=== PATIENT | female | born 1975 | race Caucasian/White ===

== ENCOUNTER 2017-11-21 13:22 | Emergency (ER) | payer BC ==
[~2017-11-21] VITALS: Ht 162.6 cm; Wt 70.0 kg
[2017-11-21 13:28] VITALS: TEMP 36.8; Ht 162.6 cm; Wt 70.0 kg
--- NOTE | 2017-11-21 14:38 | DIAGNOSTIC IMAGING REPORT ---
L KNEE 1 OR 2 VIEWS ROUTINE CLINICAL HISTORY: 42 years-old Female presenting with L knee pain. TECHNIQUE: Frontal and lateral views of the left knee were obtained. COMPARISON: None. FINDINGS: Knee joint congruent. No large knee joint effusion. Stippled sclerosis in the proximal metaphysis of the tibia. No acute fracture or malalignment. No advanced degenerative change. No radiographic soft tissue abnormality. IMPRESSION: 1. No acute osseous injury. 2. Stippled sclerosis in the proximal metaphysis of the tibia. This may represent a chondroid lesion or less likely infarct. Further evaluation with MR could be considered as clinically appropriate. Electronically signed by: Maurice Aguilar M.D. 11/21/2017 2:36 PM Dictated Date/Time: 11/21/2017 2:35 PM
--- NOTE | 2017-11-21 14:51 | EMERGENCY ROOM VISIT NOTE ---
History First contact with patient: 13:30 Chief Complaint: KNEEPAIN Stated Complaint: POTENTIAL DISLOCATED KNEE History of Present Illness The patient is a 42 year old female who presents to the Emergency Room with complaints of left knee pain. The patient reports that she was crouching down and try to twist her body when standing up when she felt a sudden onset of pain over the back of her knee. The patient is concerned that she dislocated the knee. The patient reports that she did injure the same knee approximately 2 weeks ago with a similar mechanism of injury. She reports that the pain lasted approximately 2 days, and had no persistent clicking, locking, instability or discomfort. The patient denies any prior left knee injuries or surgeries. She currently denies any pain extending into the leg or thigh. She denies paresthesias or numbness of the left lower extremity, and rates her discomfort an 8 out of 10. Review of Systems 10 system review was performed and was negative except for pertinent positives and negatives as indicated in history of present illness Past Medical/Surgical History Medical Problems: (1) No significant past medical history Surgical Problems: (1) History of delivery (2) History of wisdom tooth extraction Family History FH: diabetes mellitus FH: heart disease FH: hypertension FH: kidney disease Social History Smoking Status: Never Smoker Alcohol Use: occasionally Marital Status: Housing Status: lives with family Occupation Status: employed Current/Historical Medications No Active Prescriptions or Reported Meds Physical Exam Vital Signs Date Time Temp Pulse Resp B/P (MAP) Pulse Ox O2 Delivery O2 Flow Rate FiO2 5/5/18 13:28 36.8 86 18 128/73 99 Room Air Physical Exam CONSTITUTIONAL: Healthy and well nourished. Alert and oriented X 3 with positive affect. Patient appears in mild to moderate discomfort. HEENT: Normocephalic, atraumatic. Pupils equal, round and reactive. NECK: Full active range of motion without discomfort. MUSCULOSKELETAL: Examination of the left knee does not show any obvious soft tissue edema, ecchymosis or erythema. The patient has notable tenderness to palpation over the posterior medial joint line. No focal tenderness about the patella, hamstrings or anterior knee region. Range of motion is limited secondary to discomfort. Collateral ligaments are intact. Pedal pulses are intact. INTEGUMENTARY: No rash or other significant dermatologic conditions noted. NEUROLOGIC: Left lower extremity is sensory intact. Medical Decision & Procedures ER Provider Diagnostic Interpretation: My interpretation of left knee x-rays does not show any obvious fractures, subluxations or dislocation. Radiologist report is as follows: L KNEE 1 OR 2 VIEWS ROUTINE CLINICAL HISTORY: 42 years-old Female presenting with L knee pain. TECHNIQUE: Frontal and lateral views of the left knee were obtained. COMPARISON: None. FINDINGS: Knee joint congruent. No large knee joint effusion. Stippled sclerosis in the proximal metaphysis of the tibia. No acute fracture or malalignment. No advanced degenerative change. No radiographic soft tissue abnormality. IMPRESSION: 1. No acute osseous injury. 2. Stippled sclerosis in the proximal metaphysis of the tibia. This may represent a chondroid lesion or less likely infarct. Further evaluation with MR could be considered as clinically appropriate. ED Course Patient history and physical exam were performed. Nurse's notes were reviewed. Vital signs were reviewed and were normal. The patient refused any analgesics on initial exam. An ice pack was applied to the knee. X-rays of the left knee does not show any acute injuries. I did discuss x-ray findings with the patient and . I did suggest that she follow-up with [facility] for further reevaluation and management. The patient was encouraged to continue intermittently applying ice and elevate the knee for swelling. She may alternate ibuprofen and Tylenol as needed for pain. A knee immobilizer and crutches were dispensed. The patient was happy with plan of care, voiced understanding of all discharge instructions, and rated her discomfort a 3 out of 10 at the conclusion of my exam. Medical Decision The patient has notable discomfort with any flexion or extension of the knee. This is concerning for possible medial posterior horn meniscal injury based on clinical exam findings. Mechanism of injury would certainly be consistent with this type of injury. I was unable to get a thorough knee exam because of patient discomfort. I do not suspect collateral ligament injury. She has no evidence for fracture or dislocation/subluxation. Medication Reconcilliation Current Medication List: was personally reviewed by me Blood Pressure Screening Patient's blood pressure: Normal blood pressure Impression Primary Impression: Left knee injury Departure Information Prescriptions No Active Prescriptions or Reported Meds Referrals Miki Fam M.D. (PCP) Patient Instructions My [facility] Problem Qualifiers Primary Impression: Left knee injury Encounter type: initial encounter Qualified Codes: S89.92XA - Unspecified injury of left lower leg, initial encounter
[2017-11-21 14:59] VITALS: BP 129/87; PULSE 72; O2SAT 99
== END 2017-11-21 15:01 | disposition home or self-care (01) ==
LOC: C.EDB 13:24 → C.EDD 15:01
DX: S89.92XA Unspecified injury of left lower leg, initial encounter (principal); X50.1XXA Overexertion from prolonged static or awkward postures, initial encounter

== ENCOUNTER → 2017-11-25 | Outpatient (CLI) | payer BC | END | disposition home or self-care (01) | LOC: C.LABBFT 09:27 | PROVIDERS: ATTEND Physician Assistant Medical | DX: R63.5 Abnormal weight gain (principal) ==

== ENCOUNTER → 2017-11-30 | Outpatient (CLI) | payer BC ==
--- NOTE | 2017-11-30 07:55 | DIAGNOSTIC IMAGING REPORT ---
MRI LEFT KNEE NO CONTRAST CLINICAL HISTORY: Left knee pain COMPARISON STUDY: Conventional radiographic study dated 11/21/2017 FINDINGS: Imaging was performed in sagittal, axial, and coronal planes. There is a 17 mm T2 bright lesion within the proximal tibial metaphysis. This is consistent with a chondroid lesion. There are no areas of marrow edema to indicate occult fracture or bone bruise. The patellar and quadriceps tendons appear intact. The anterior and posterior cruciate ligaments appear intact. The medial and lateral collateral ligaments appear intact. The lateral meniscus appears intact. There is extensive linear signal within the posterior horn the medial meniscus. This does not definitively reach a meniscal surface, and therefore be characterized as grade 2 degenerative change. There is mild popliteus edema. IMPRESSION: 1. 17 mm T2 bright lesion within the proximal tibial metaphysis, consistent with a chondroid lesion 2. Popliteus muscle edema consistent with a muscle strain 3. No evidence of cruciate or collateral ligament disruption 4. Extensive linear signal within the posterior horn of the medial meniscus without evidence of a discrete tear. Electronically signed by: Petar Lancaster M.D. 11/30/2017 7:54 AM Dictated Date/Time: 11/30/2017 7:45 AM
== END | disposition home or self-care (01) ==
LOC: C.MRIBC 06:54
PROVIDERS: ATTEND Orthopaedic Surgery
DX: M25.562 Pain in left knee (principal)